=== PATIENT | male | born 1975 | race Caucasian/White ===

== ENCOUNTER 2025-07-14 09:41 | Outpatient (CLI) | payer BC, SELFPAY ==
--- NOTE | ~2025-07-14 | XR_ITS ---
EXAMINATION: XR finger 2nd LT min 2V, 07/14/2025 9:50 PHOTOGRAPHIC PLATEMAKER HISTORY: CELLULITIS OF LEFT 2ND FINGER COMPARISON: No comparisons available. Findings: No acute fracture or malalignment. No significant degenerative changes. Soft tissues unremarkable. Impression: No acute fracture or malalignment. Reviewed, dictated and finalized at location P. OGRAPHIC PLATEMAKER Impression: No acute fracture or malalignment.
== END 2025-07-14 09:42 | disposition home or self-care (01) ==
PROVIDERS: PCP Nurse Practitioner Family; Visit Provider Nurse Practitioner Family
DX: L03.012 Cellulitis of left finger (principal)
CPT/HCPCS: 73140